=== PATIENT | male | born 1995 | race American Indian/Alaskan Native ===

== ENCOUNTER 2017-12-12 08:53 | Inpatient (IN) | payer OTHER ==
[2017-12-12 09:10] VITALS: BMI 21.6
[2017-12-12] MEDS ORDERED: levETIRAcetam 1,000 MG in Sodium Chloride 0.9% 100 ML IV ONE (09:25)
--- NOTE | 2017-12-12 09:29 | ED PDOC ---
Arrival/HPI - General Chief Complaint: Seizure Time Seen by Provider: 12/12/17 09:02 Historian: Patient - History of Present Illness Narrative History of Present Illness (Text): 12/12/17 09:26 22yo male with PMHx of seizure bib EMS for recurrent seizure. Patient's mother by the bedside states she noticed patent had a tonic-clonic seizure this morning. States patient's last seizure was 2years ago. He has been on unknown dose of Keppra twice daily and states he is complaint with his medication.s States he saw his Neurologist yesterday. Mother states she did not witnessed urinary/fecal incontinence. Patient reports mild headache. He denies tongue biting, focal weakness or any other somatic complaint. Past Medical History - Provider Review Nursing Documentation Reviewed: Yes - Neurological Hx Seizures: Yes - Psychiatric Hx Substance Use: No - Anesthesia Hx Anesthesia: No Family/Social History - Physician Review Nursing Documentation Reviewed: Yes Family/Social History: Unknown Family HX Smoking Status: Never Smoked Hx Alcohol Use: No Hx Substance Use: No Allergies/Home Meds Allergies/Adverse Reactions: Allergies No Known Allergies Allergy (Verified 12/12/17 16:32) Home Medications: Home Meds Medication Instructions Recorded Confirmed Unobtainable 12/12/17 12/12/17 Review of Systems - Physician Review All systems were reviewed & negative as marked: Yes - Review of Systems Constitutional: Normal Eyes: Normal ENT: Normal Respiratory: Normal Cardiovascular: Normal Gastrointestinal: Normal Genitourinary Male: Normal Musculoskeletal: Normal Skin: Normal Neurological: Headache, Seizure. absent: Dizziness, Focal Weakness, Gait Changes, Speech Changes, Facial Droop Endocrine: Normal Hemo/Lymphatic: Normal Psychiatric: Normal Physical Exam Vital Signs Reviewed: Yes Vital Signs Temp Pulse Resp BP Pulse Ox 12/12/17 16:14 70 18 125/85 100 12/12/17 16:01 70 18 125/85 100 12/12/17 12:57 65 18 118/75 100 12/12/17 11:47 72 18 121/79 100 12/12/17 09:05 98.2 F 102 H 18 119/82 97 Temperature: Afebrile Blood Pressure: Normal Pulse: Regular Respiratory Rate: Normal Appearance: Positive for: Well-Appearing, Non-Toxic, Comfortable Pain Distress: None Mental Status: Positive for: Alert and Oriented X 3 - Systems Exam Head: Present: Atraumatic, Normocephalic Pupils: Present: PERRL Extroacular Muscles: Present: EOMI Conjunctiva: Present: Normal Mouth: Present: Moist Mucous Membranes Neck: Present: Normal Range of Motion Respiratory/Chest: Present: Clear to Auscultation, Good Air Exchange. No: Respiratory Distress, Accessory Muscle Use Cardiovascular: Present: Regular Rate and Rhythm, Normal S1, S2. No: Murmurs Abdomen: No: Tenderness, Distention, Peritoneal Signs Back: Present: Normal Inspection Upper Extremity: Present: Normal Inspection. No: Cyanosis, Edema Lower Extremity: Present: Normal Inspection. No: Edema Neurological: Present: GCS=15, CN II-XII Intact, Speech Normal, Motor Func Grossly Intact, Normal Sensory Function, Normal Cerebellar Funct, Norm Deep Tendon Reflexes, Memory Normal, Normal 2Pt Descrimination, Other (No focal neurological deficit) Skin: Present: Warm, Dry, Normal Color. No: Rashes Psychiatric: Present: Alert, Oriented x 3, Normal Insight, Normal Concentration Medical Decision Making ED Course and Treatment: 12/12/17 10:29 22yo male with h/o seizure in ED for recurrent seizure. Lab ordered Keppra 1000mg and Tylenol ordered ordered Head CT ordered EKG NSR @94bpm will reassess pt 12/12/17 18:17 Lab was reviewed and elevated CK indicating Rhabdo was noted. UDS +Marijuana. PT was admitted for Rhabdomylosis and recurrent seizure. He was hydrated in ED. Case was DW Dr. Brown and he accepted pt for admission - Lab Interpretations Lab Results: 12/12/17 09:45 12/12/17 09:45 Lab Results 12/12/17 09:45: Alcohol, Quantitative < 10 12/12/17 09:45: Sodium 144, Potassium 4.3, Chloride 107, Carbon Dioxide 26, Anion Gap 15, BUN 7, Creatinine 0.8, Est GFR ( Amer) > 60, Est GFR (Non- Af Amer) > 60, Random Glucose 96, Calcium 9.2, Magnesium 2.2, Total Bilirubin 0.3, AST 208 H, ALT 163 H, Alkaline Phosphatase 74, Total Creatine Kinase 38962 H, CK-MB (CK-2) 5.4 H, CK-MB (CK-2) % 0.0 L, Total Protein 7.1, Albumin 4.4, Globulin 2.7, Albumin/Globulin Ratio 1.6 12/12/17 09:45: WBC 4.7, RBC 5.08, Hgb 12.5 L, Hct 37.5 L, MCV 73.8 L, MCH 24.6 L, MCHC 33.3, RDW 14.3, Plt Count 261, MPV 9.7, Gran % 68.0, Lymph % (Auto) 21.8 L, Holmes % (Auto) 8.5 H, Eos % (Auto) 1.5, Baso % (Auto) 0.2, Gran # 3.22, Lymph # (Auto) 1.0 L, Holmes # (Auto) 0.4, Eos # (Auto) 0.1, Baso # (Auto) 0.01 - RAD Interpretation Radiology Orders: 12/12/17 09:22 HEAD W/O CONTRAST [CT] Stat - Medication Orders Current Medication Orders: Sodium Chloride (Sodium Chloride 0.9%) 1,000 mls @ 150 mls/hr IV .Q6H40M SHAMIKA Last Admin: 12/12/17 12:40 Dose: 150 mls/hr eMAR Start Stop Document 12/12/17 12:40 HI (Rec: 12/12/17 13:40 HI [id number]) Intravenous Solution Start Date 12/12/17 Start Time 12:40 Multivitamins/Vitamin C 10 ml/Thiamine HCl 100 mg/ Folic Acid 1 mg/ Sodium Chloride 1,011.2 mls @ 100 mls/hr IV .Q10H7M ONE Stop: 12/13/17 03:07 Levetiracetam (Keppra) 750 mg PO HS SHAMIKA Levetiracetam (Keppra) 500 mg PO QAM SHAMIKA Lorazepam (Ativan) 1 mg IVP Q2H PRN; Protocol PRN Reason: seizure Discontinued Medications Acetaminophen (Tylenol 325mg Tab) 650 mg PO STAT STA Stop: 12/12/17 09:32 Last Admin: 12/12/17 09:51 Dose: 650 mg MAR Pain/Vitals Document 12/12/17 09:51 HI (Rec: 12/12/17 09:51 HI [id number]) Pain Reassessment Is This A Pain ReAssessment? No Sleep Is patient sleeping during reassessment? No Presence of Pain Presence of Pain Yes Pain Scale Used Pain Scale Used Numeric Location Pain Location Body Planning Official Description Throbbing Re-Assess: MAR Pain/Vitals Document 12/12/17 10:51 HI (Rec: 12/12/17 12:26 HI [id number]) Pain Reassessment Is This A Pain ReAssessment? Yes Sleep Is patient sleeping during reassessment? Yes Levetiracetam 1,000 mg/ Sodium (Chloride) 110 mls @ 440 mls/hr IV ONCE ONE Stop: 12/12/17 09:39 Last Admin: 12/12/17 09:51 Dose: 440 mls/hr eMAR Start Stop Document 12/12/17 09:51 HI (Rec: 12/12/17 09:51 HI [id number]) Intravenous Solution Start Date 12/12/17 Start Time 09:51 Sodium Chloride (Sodium Chloride 0.9%) 1,000 mls @ 999 mls/hr IV .Q1H1M STA Stop: 12/12/17 11:36 Last Admin: 12/12/17 10:48 Dose: 999 mls/hr eMAR Start Stop Document 12/12/17 10:48 HI (Rec: 12/12/17 10:48 HI [id number]) Intravenous Solution Start Date 12/12/17 Start Time 10:48 Disposition/Present on Arrival - Present on Arrival Any Indicators Present on Arrival: No History of DVT/PE: No History of Uncontrolled Diabetes: No Urinary Catheter: No History of Decub. Ulcer: No History Surgical Site Infection Following: None - Disposition Have Diagnosis and Disposition been Completed?: Yes Diagnosis: Seizure, Rhabdomyolysis Disposition: HOSPITALIZED Disposition Time: 10:45 Patient Plan: Admission Patient Problems: Current Active Problems Problem Status Onset Rhabdomyolysis Acute Seizure Acute Condition: FAIR
[2017-12-12 10:08] LABS: BASO # 0.01 K/mm3 (0.0-2.0); BASO % 0.2 % (0.0-3.0); EOS # 0.1 (0.0-0.7); EOS % 1.5 % (1.5-5.0); GRAN # 3.22 (1.4-6.5); HEMOGLOBIN 12.5 g/dL (14.0-18.0); LYMPH % 21.8 % (22.0-35.0); MEAN CELL VOLUME 73.8 fl (80.0-105.0); MEAN CORPUSCULAR HEMOGLOBIN 24.6 pg (25.0-35.0); MEAN CORPUSCULAR HGB CONC 33.3 g/dl (31.0-37.0); MEAN PLATELET VOLUME 9.7 fl (7.0-11.0); MONO # 0.4 (0.1-0.6); MONO % 8.5 % (1.0-6.0); RBC 5.08 10^6/uL (3.5-6.1); RED CELL DISTRIBUTION WIDTH 14.3 % (11.5-14.5); WHITE BLOOD COUNT 4.7 10^3/ul (4.5-11.0)
[2017-12-12 10:11] LABS: ALB/GLOB RATIO 1.6 (1.1-1.8); ALBUMIN 4.4 g/dL (3.0-4.8); ALT/SGPT 163 U/L (7-56); AST/SGOT 208 U/L (17-59); BLOOD UREA NITROGEN 7 mg/dL (7-21); CALCIUM 9.2 mg/dL (8.4-10.5); GFR AFRICAN-AMERICAN > 60; GFR NON-AFRICAN AMERICAN > 60
[2017-12-12] MEDS ORDERED: Sodium Chloride 0.9% 1,000 ML IV STA (10:36)
--- NOTE | 2017-12-12 10:45 | CT ---
PROCEDURE: CT HEAD WITHOUT CONTRAST. HISTORY: Seizure COMPARISON: None available. TECHNIQUE: Axial computed tomography images were obtained through the head/brain without intravenous contrast. Radiation dose: Total exam DLP = 969.95 mGy-cm. This CT exam was performed using one or more of the following dose reduction techniques: Automated exposure control, adjustment of the mA and/or kV according to patient size, and/or use of iterative reconstruction technique. FINDINGS: HEMORRHAGE: No acute parenchymal, subarachnoid or extra-axial hemorrhage. BRAIN: No evidence of large acute infarct. No obvious parenchymal nor extra-axial masses or collections seen on this noncontrast study. VENTRICLES: No obstructive hydrocephalus. CALVARIUM: There are no acute calvarial fracture seen. PARANASAL SINUSES: Unremarkable as visualized. No significant inflammatory changes. MASTOID AIR CELLS: Unremarkable as visualized. No inflammatory changes. OTHER FINDINGS: None. IMPRESSION: No acute intracranial hemorrhage. . Follow-up MRI could be performed for further evaluation of seizure disorder if not already obtained.
--- NOTE | 2017-12-12 11:30 | CP.PCM.HP ---
<RonitDave - Last Filed: 12/12/17 12:33> History of Present Illness - History of Present Illness History of Present Illness: PGY1 Medicine H+P for Dr. Brown Patient is a 22 year old male with a past medical history of known seizure disorder presenting to the hospital after a witnessed seizure this morning. The patient's mother was in the bathroom when she heard a banging in her son's room around 8:15am today. Upon entering, she saw the patient convulsing on his bed. Per the mother, the patient was experiencing whole body convulsions and foaming at the mouth. The convulsions lasted for approximately 4 to 5 minutes. Upon waking, the patient was confused with no recollection of the seizure. He his confusion has since resolved. He states he has been compliant with his medication and has not missed any doses of his medication, Keppra BID of unknown dose. The patient was healthy yesterday without any complaint. He was last seen awake and normal by his mother around 1 am prior to going to sleep. He has no residual effects after the seizure with no complaints currently except for fatigue and mild headache. Denies fevers, chills, nausea, vomiting, diarrhea, constipation, chest pain, shortness of breath, palpitations, abdominal pain, decreased appetite, vision changes, sleep changes, numbness or tingling. PMH: known seizure disorder PSH: denies Meds: Keppra BID (unknown dose and unknown pharmacy) Family: unremarkable Social: smoke marijuana twice a week, denies tobacco, alcohol or other illicit drug use. 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 Currently unemployed. Lives at home with mom. Allergies: NKDA Neurologist: Dr. Harris (last seen yesterday) Seizure hx: - First seizure - January 14, 2016 (unknown reason, no trauma) - Last seizure - September 19, 2016 - This is approx his 5th seizure. - Every seizure has occurred while patient was sleeping. Present on Admission - Present on Admission Any Indicators Present on Admission: No History of DVT/PE: No History of Uncontrolled Diabetes: No Urinary Catheter: No Decubitus Ulcer Present: No Review of Systems - Review of Systems All systems: reviewed and no additional remarkable complaints except - Constitutional Constitutional: Fatigue, Headache (mild). absent: Chills, Fever, Increased Appetite, Weight Gain, Weight Loss - EENT Eyes: As Per HPI, Photophobia. absent: Change in Vision, Pain Nose/Mouth/Throat: As Per HPI. absent: Nasal Congestion, Nasal Discharge, Dry Mouth, Sore Throat - Cardiovascular Cardiovascular: As Per HPI. absent: Chest Pain, Chest Pain at Rest, Diaphoresis , Leg Edema, Lightheadedness, Syncope - Respiratory Respiratory: As Per HPI. absent: Cough, Wheezing - Gastrointestinal Gastrointestinal: As Per HPI. absent: Abdominal Pain, Constipation, Cramping, Diarrhea, Nausea - Genitourinary Genitourinary: As Per HPI. absent: Dysuria, Flank Pain - Musculoskeletal Musculoskeletal: As Per HPI. absent: Muscle Cramps, Muscle Weakness - Neurological Neurological: As Per HPI, Confusion (resolved), Convulsions (whole body convulsion lasting 4-5 minutes), Headaches (intermittent headaches). absent: Dizziness, Numbness, Tingling, Vertigo, Weakness - Psychiatric Psychiatric: absent: Abnormal Sleep Pattern, Anxiety, Auditory Hallucinations, Change in Appetite, Confusion, Depression, Hopelessness, Mood Swings - Endocrine Endocrine: As Per HPI. absent: Change in Body Appearance, Flushing, Palpitations - Hematologic/Lymphatic Hematologic: As Per HPI Past Patient History - Past Medical History & Family History Past Medical History?: Yes - Past Social History Smoking Status: Never Smoked Chewing Tobacco Use: No Cigar Use: No Alcohol: Occasional (last drink 4-5 months ago) Drugs: Cannabis (twice a week) - NEUROLOGICAL Hx Seizures: Yes - PSYCHIATRIC Hx Substance Use: No - SURGICAL HISTORY Hx Surgeries: No - ANESTHESIA Hx Anesthesia: No Meds Allergies/Adverse Reactions: Allergies Allergy/AdvReac Type Severity Reaction Status Date / Time No Known Allergies Allergy Verified 04/19/15 16:39 Physical Exam - Constitutional Appears: Well - Head Exam Head Exam: ATRAUMATIC, NORMAL INSPECTION, NORMOCEPHALIC - Eye Exam Eye Exam: EOMI, Normal appearance, PERRL Pupil Exam: NORMAL ACCOMODATION, PERRL - ENT Exam ENT Exam: Mucous Membranes Moist, Normal Exam - Neck Exam Neck exam: Positive for: Normal Inspection. Negative for: Lymphadenopathy - Respiratory Exam Respiratory Exam: Clear to Auscultation Bilateral, NORMAL BREATHING PATTERN. absent: Accessory Muscle Use, Rales, Rhonchi, Wheezes, Respiratory Distress - Cardiovascular Exam Cardiovascular Exam: REGULAR RHYTHM, +S1, +S2. absent: JVD - GI/Abdominal Exam GI & Abdominal Exam: Normal Bowel Sounds, Soft. absent: Distended, Firm, Guarding, Rigid, Tenderness - Extremities Exam Extremities exam: Positive for: normal inspection, pedal pulses present. Negative for: calf tenderness, pedal edema, tenderness - Back Exam Back exam: NORMAL INSPECTION - Neurological Exam Neurological exam: Alert, CN II-XII Intact, Oriented x3, Reflexes Normal - Psychiatric Exam Psychiatric exam: Normal Affect, Normal Mood - Skin Skin Exam: Dry, Intact, Normal Color, Warm Results - Vital Signs Recent Vital Signs: Last Vital Signs Temp 98.2 F 12/12/17 09:05 Pulse 102 H 12/12/17 09:05 Resp 18 12/12/17 09:05 BP 119/82 12/12/17 09:05 Pulse Ox 97 12/12/17 09:05 - Labs Result Diagrams: 12/12/17 09:45 12/12/17 09:45 Assessment & Plan - Assessment and Plan (Free Text) Assessment: Patient is a 22 year old male with known seizure disorder presents to the hospital with a breakthrough seizure and rhabdomyolysis. Plan: Breakthrough Seizure Neurology Consulted, Dr. Harris - help appreciated All symptoms resolved currently Head CT - No acute intracranial hemorrhage. . Follow-up MRI could be performed for further evaluation of seizure disorder if not already obtained. CXR - No active disease. UDS - positive for cannabinoids only; Alc <10 f/u Levetiracetam (Keppra) level Given Keppra 1,000mg IV in ED Per Dr. Harris's office, patient was given a script for Keppra 500mg PO BID yesterday. Will start patient on this regiment until seen by Dr. Harris. Ativan 1mg IVP PRN Seizure precautions Rhabdomyolysis Total CK - 13,568 Trend CPK, continue to monitor NS @150mL/hr Transaminitis AST 208/ ALT 163 Non-tender on exam f/u hep panel continue to monitor Prophylactic Care SCDs, patient is ambulatory, no anticoagulation indicated at this time No GI ppx indicated at this time Case discussed with Dr. Kevin Cottrell PGY <Willian Brown - Last Filed: 12/12/17 16:00> Results - Vital Signs Recent Vital Signs: Last Vital Signs Temp 98.2 F 12/12/17 09:05 Pulse 65 12/12/17 12:57 Resp 18 12/12/17 12:57 BP 118/75 12/12/17 12:57 Pulse Ox 100 12/12/17 12:57 - Labs Result Diagrams: 12/12/17 09:45 12/12/17 09:45 Labs: Laboratory Results - last 24 hr 12/12/17 12/12/17 12:10 12:10 Urine Color Yellow Urine Appearance Clear Urine pH 6.0 Ur Specific [place] 1.020 Urine Protein Trace H Urine Glucose (UA) Negative Urine Ketones Negative Urine Blood Trace-intact H Urine Nitrate Negative Urine Bilirubin Negative Urine Urobilinogen 0.2 Ur Leukocyte Esterase Negative Urine RBC 1 - 3 Urine WBC 0 - 2 Ur Epithelial Cells 0 - 2 Urine Bacteria Mod Urine Opiates Screen Negative Urine Methadone Screen Negative Ur Barbiturates Screen Negative Ur Phencyclidine Scrn Negative Ur Amphetamines Screen Negative U Benzodiazepines Scrn Negative U Oth Cocaine Metabols Negative U Cannabinoids Screen Positive H Attending/Attestation - Attestation I have personally seen and examined this patient.: Yes I have fully participated in the care of the patient.: Yes I have reviewed all pertinent clinical information: Yes Notes (Text): 12/12/17 15:57 22 year old male with past medical history of seizure disorder who presented with breakthrough seizure at home witnessed by his mother. He was also found to have rhabdomyolysis with CPK of 13,568. Will start on iv fluids with serial CPK monitoring. Neurology evaluation is requested. He is on keppra. Keppra level is ordered. CT head was negative for acute findings. Continue to monitor LFTs closely. Hepatitis panel is ordered. Willian Brown MD Hospitalist.
[2017-12-12 11:34] LABS: CK-MB 5.4 ng/mL (0.0-3.6)
--- NOTE | 2017-12-12 12:11 | RAD ---
HISTORY: baseline admission COMPARISON: 04/19/2015 FINDINGS: LUNGS: No active pulmonary disease. PLEURA: No significant pleural effusion identified, no pneumothorax apparent. CARDIOVASCULAR: Normal. OSSEOUS STRUCTURES: No significant abnormalities. VISUALIZED UPPER ABDOMEN: Normal. OTHER FINDINGS: None. IMPRESSION: No active disease.
[2017-12-12 12:24] LABS: URINE BILIRUBIN NEGATIVE (NEGATIVE); URINE BLOOD TRACE-INTACT (NEGATIVE); URINE GLUCOSE (UA) NEGATIVE (NEGATIVE); URINE LEUKOCYTE ESTERASE NEGATIVE Leu/uL (NEGATIVE); URINE PROTEIN TRACE mg/dL (<30 mg/dL); URINE UROBILINOGEN 0.2 E.U./dL (<1 E.U./dL)
[2017-12-12 12:29] LABS: URINE APPEARANCE CLEAR (CLEAR); URINE COLOR YELLOW (YELLOW)
[2017-12-12] MEDS: Sodium Chloride 0.9% 1,000 ML IV SCH ×2 (12:40→18:24)
[2017-12-12 12:41] LABS: URINE BACTERIA MOD (NEG); URINE EPITHELIAL CELLS 0 - 2 /hpf (0-5); URINE WBC 0 - 2 /hpf (0-6)
[2017-12-12 12:55] LABS: BARBITURATES, UR NEGATIVE (NEGATIVE); BENZODIAZEPINES, UR NEGATIVE (NEGATIVE); OPIATES, UR NEGATIVE (NEGATIVE); PHENCYCLIDINE, UR NEGATIVE (NEGATIVE)
[2017-12-12] MEDS ORDERED: Multivitamin (MVI) 10 ML, Thiamine 100 MG, Folic Acid 1 MG in Sodium Chloride 0.9% 1,00... IV ONE (17:01)
[2017-12-12] MEDS ORDERED: Pneumococcal 23-Valent Vaccine IM ONE (18:57)
--- NOTE | 2017-12-12 19:27 | CON ---
DATE: NEUROLOGY CONSULTATION CHIEF COMPLAINT: Seizure. HISTORY OF PRESENT ILLNESS: This is a 22-year-old man with past medical history of seizure disorder, had a breakthrough seizure this morning at around 8:15 in the a.m., but the patient was convulsive in the bed and foaming on the mouth, but no bowel or bladder incontinence since this, had a postictal confusion. He is on Keppra and he says he has not missed any dose. He is on Keppra 500 mg p.o. b.i.d. He does have some sleep depravation as well, and sleeps late at night around 1 to 2 a.m. No focal weakness in the extremities. Currently he is doing well, and no further seizure like activity. His first seizure was on 01/14/2016 and last seizure was on 09/19/2016, and his seizures usually occurred when he was sleeping at night. Currently no focal weakness of the extremities. We will give him one dose of banana bag and will adjust his Keppra to 500 in the morning and 750 at night. CAT scan of the head showed no acute intracranial abnormality. PAST MEDICAL HISTORY: Seizure disorder. MEDICATIONS: Reviewed by nurse per reconciliation sheet. FAMILY HISTORY: Noncontributory. SOCIAL HISTORY: Smokes marijuana twice a week. Denies any tobacco, illicit drug use or alcohol. 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 Lives at home with mom. ALLERGIES: NO KNOWN DRUG ALLERGIES. REVIEW OF SYSTEMS: A 14-point review of systems negative except as per the HPI. LABORATORY DATA: U-tox is positive for cannabinoids. Sodium is 144, potassium 4.3, chloride of 107, carbon dioxide 26, BUN of 7, creatinine 0.8, random glucose 96. There is elevated LFTs. CK-MB is elevated at 12, creatine kinase is 13,568. PHYSICAL EXAMINATION GENERAL: The patient is sitting up in bed, no acute distress. VITAL SIGNS: Temperature 98.8, pulse rate 72, blood pressure 112/60, respiratory rate 20. HEENT: Head is atraumatic and normocephalic. PERRLA. Extraocular muscles intact. NECK: Supple. No JVD. No adenopathy noted. LUNGS: Clear to auscultation. No adventitious sounds. HEART: S1 and S2, normal rate and rhythm. No murmurs, rubs, or gallops. ABDOMEN: Soft, nontender, and nondistended. Bowel sounds are present. EXTREMITIES: No clubbing. No cyanosis. Peripheral pulses are 2+ felt bilaterally. NEUROLOGIC: The patient is alert and oriented to person, place, month, and year. Speech is fluent without any errors. Cranial nerves II through XII are intact. Motor exam: Moves all extremities equally. Toes are downgoing bilaterally. Sensory exam: Light touch, pinprick, proprioception, and vibration intact. DTRs are 2+ throughout. Coordination: Eoyoil-ce-igvd intact. Gait is deferred for now. ASSESSMENT AND PLAN: This is 22-year-old man with history of seizure disorder, first started in 01/14/2016 and then his last seizure was on 09/19/2016, had breakthrough seizure especially at night; when he was woken up this morning, he has had generalized tonic-clonic seizure postictal period. His breakthrough seizure could be secondary to sleep deprivation. At this time we recommend; 1. We will change his Keppra to 500 mg p.o. every morning and 750 p.o. every night. 2. Sleep hygiene advised and properly schedule sleep. 3. Advised not to smoke marijuana, which could other seizure like aggravating factors. 4. MRI of the brain with contrast and EEG, and he can be discharged after those tests. Thank you for this consult. Jeevan Harris MD
[2017-12-13] MEDS: Sodium Chloride 0.9% 1,000 ML IV SCH ×5 (00:51→21:08)
[2017-12-13 06:48] LABS: BASO # 0.02 K/mm3 (0.0-2.0); BASO % 0.4 % (0.0-3.0); EOS # 0.1 (0.0-0.7); EOS % 2.5 % (1.5-5.0); GRAN # 2.68 (1.4-6.5); GRAN % 47.4 % (50.0-68.0); HEMOGLOBIN 12.1 g/dL (14.0-18.0); LYMPH # 2.3 (1.2-3.4); LYMPH % 40.5 % (22.0-35.0); MEAN CORPUSCULAR HEMOGLOBIN 23.7 pg (25.0-35.0); MEAN CORPUSCULAR HGB CONC 31.6 g/dl (31.0-37.0); MEAN PLATELET VOLUME 9.8 fl (7.0-11.0); MONO # 0.5 (0.1-0.6); MONO % 9.2 % (1.0-6.0); RBC 5.11 10^6/uL (3.5-6.1); RED CELL DISTRIBUTION WIDTH 14.6 % (11.5-14.5); WHITE BLOOD COUNT 5.7 10^3/ul (4.5-11.0)
[2017-12-13 07:49] LABS: ALB/GLOB RATIO 1.6 (1.1-1.8); ALBUMIN 3.8 g/dL (3.0-4.8); ALT/SGPT 124 U/L (7-56); AST/SGOT 123 U/L (17-59); BLOOD UREA NITROGEN 7 mg/dL (7-21); CALCIUM 8.9 mg/dL (8.4-10.5); GFR AFRICAN-AMERICAN > 60; GFR NON-AFRICAN AMERICAN > 60
[2017-12-13 07:54] LABS: CK-MB 3.4 ng/mL (0.0-3.6)
--- NOTE | 2017-12-13 08:26 | US ---
HISTORY: elevated LFTs COMPARISON: None. TECHNIQUE: Sonographic evaluation of the abdomen. FINDINGS: LIVER: Measures 15.5 cm. Patent portal vein. Portal venous flow: Hepatopetal. Unremarkable echogenicity of the liver parenchyma. No mass. No intrahepatic bile duct dilatation. GALLBLADDER: Unremarkable. No gallstones. COMMON BILE DUCT: Measures 3.6 mm. No stones. No dilatation. PANCREAS: Unremarkable as visualized. No mass. No ductal dilatation. RIGHT KIDNEY: Measures 3.8 x 10.6cm. Normal echogenicity. No calculus, mass, or hydronephrosis. LEFT KIDNEY: Measures 5.6 x 11.5 cm. Normal echogenicity. No calculus, mass, or hydronephrosis. SPLEEN: Normal in size and contour. No mass. AORTA: No aneurysmal dilatation. IVC: Unremarkable. OTHER FINDINGS: None. IMPRESSION: Unremarkable abdominal sonogram.
--- NOTE | 2017-12-13 11:47 | CP.PCM.PN ---
<Dave Cottrell - Last Filed: 12/13/17 12:35> Subjective - Date & Time of Evaluation Date of Evaluation: 12/13/17 Time of Evaluation: 07:43 - Subjective Subjective: PGY1 Medicine Note for Dr. Brown Patient seen and examined at bedside. No acute events overnight. Patient was resting comfortably in bed. He was seizure free throughout the rest of day/ night. He feels back to normal and just wishes he could go home. He has no complaints at this time. Denies fevers, chills, nausea, vomiting, diarrhea, constipation, chest pain, shortness of breath, palpitations, abdominal pain, decreased appetite, vision changes, sleep changes, numbness or tingling. Objective - Vital Signs/Intake and Output Vital Signs (last 24 hours): Temp Pulse Resp BP Pulse Ox 98.3 F 73 18 102/60 100 12/13/17 06:00 12/13/17 10:00 12/13/17 06:00 12/13/17 06:00 12/13/17 06:00 Intake and Output: 12/13/17 12/13/17 06:59 18:59 Intake Total 1300 Output Total 1100 Balance 200 - Medications Medications: Current Medications Sodium Chloride (Sodium Chloride 0.9%) 1,000 mls @ 150 mls/hr IV .Q6H40M [facility] Last Admin: 12/13/17 09:49 Dose: 150 mls/hr Levetiracetam (Keppra) 750 mg PO HS [facility] Last Admin: 12/12/17 21:44 Dose: 750 mg Levetiracetam (Keppra) 500 mg PO QAM [facility] Last Admin: 12/13/17 09:48 Dose: 500 mg Lorazepam (Ativan) 1 mg IVP Q2H PRN; Protocol PRN Reason: seizure - Labs Labs: 12/13/17 06:00 12/13/17 06:00 - Constitutional Appears: Non-toxic, No Acute Distress - Head Exam Head Exam: ATRAUMATIC, NORMOCEPHALIC - Eye Exam Eye Exam: EOMI, Normal appearance, PERRL - ENT Exam ENT Exam: Mucous Membranes Moist - Neck Exam Neck Exam: absent: Lymphadenopathy - Respiratory Exam Respiratory Exam: Clear to Ausculation Bilateral, NORMAL BREATHING PATTERN. absent: Accessory Muscle Use, Rales, Rhonchi, Wheezes, Respiratory Distress - Cardiovascular Exam Cardiovascular Exam: REGULAR RHYTHM, +S1, +S2 - GI/Abdominal Exam GI & Abdominal Exam: Soft, Normal Bowel Sounds. absent: Distended, Firm, Guarding, Rigid, Tenderness - Extremities Exam Extremities Exam: Normal Inspection. absent: Calf Tenderness, Pedal Edema, Tenderness - Neurological Exam Neurological Exam: Alert, Awake, CN II-XII Intact, Oriented x3 - Psychiatric Exam Psychiatric exam: Normal Affect, Normal Mood - Skin Skin Exam: Dry, Normal Color, Warm Assessment and Plan - Assessment and Plan (Free Text) Assessment: Patient is a 22 year old male with known seizure disorder presents to the hospital with a breakthrough seizure and rhabdomyolysis. Plan: Breakthrough Seizure Neurology Consulted, Dr. Harris - help appreciated * Per Neuro note * Patient to have EEG and Brain MRI w/ contrast. * Keppra dose changed to 500mg PO in AM and 750mg PO in PM * Patient cleared for discharge from Neuro standpoint after tests are completed. All symptoms resolved currently Head CT - No acute intracranial hemorrhage. Follow-up MRI could be performed for further evaluation of seizure disorder if not already obtained. CXR - No active disease. UDS - positive for cannabinoids only; Alc <10 f/u Levetiracetam (Keppra) level Keppra 500mg PO in AM and 750mg PO in PM Ativan 1mg IVP PRN Seizure precautions Discussion was had with patient. He is not currently driving due to his current Seizure disorder. Rhabdomyolysis Total CK upon admission 13,568 Total CK down trending 8,346 NS @150mL/hr Transaminitis AST 208/ ALT 163 --> downtrending AST 123/ALT 124 Non-tender on exam hep panel - negative continue to monitor Prophylactic Care SCDs, patient is ambulatory, no anticoagulation indicated at this time No GI ppx indicated at this time DISPO: After patient has EEG and Brain MRI completed, he is cleared for discharge from Neuro standpoint. Will monitor CK one more day. Will hopefully discharge patient home tomorrow. Case discussed with Dr. Kevin Cottrell PGY 1 <Willian Brown - Last Filed: 12/13/17 16:33> Objective - Vital Signs/Intake and Output Vital Signs (last 24 hours): Temp Pulse Resp BP Pulse Ox 97.3 F L 64 18 131/69 100 12/13/17 12:00 12/13/17 14:00 12/13/17 12:00 12/13/17 12:00 12/13/17 06:00 Intake and Output: 12/13/17 12/13/17 06:59 18:59 Intake Total 1300 540 Output Total 1100 650 Balance 200 -110 - Medications Medications: Current Medications Sodium Chloride (Sodium Chloride 0.9%) 1,000 mls @ 150 mls/hr IV .Q6H40M [facility] Last Admin: 12/13/17 14:22 Dose: Not Given Levetiracetam (Keppra) 750 mg PO HS [facility] Last Admin: 12/12/17 21:44 Dose: 750 mg Levetiracetam (Keppra) 500 mg PO QAM [facility] Last Admin: 12/13/17 09:48 Dose: 500 mg Lorazepam (Ativan) 1 mg IVP Q2H PRN; Protocol PRN Reason: seizure - Labs Labs: 12/13/17 06:00 12/13/17 06:00 Attending/Attestation - Attestation I have personally seen and examined this patient.: Yes I have fully participated in the care of the patient.: Yes I have reviewed all pertinent clinical information, including history, physical exam and plan: Yes Notes (Text): 12/13/17 16:31 22 year old male with past medical history of seizure disorder who presented with breakthrough seizure at home witnessed by his mother. He was also found to have rhabdomyolysis with CPK of 13,568 and started on IVF. Today CPK level is improving at 8346. Neurology evaluation was appreciated and his keppra was increased. CT head and MRI brain were negative. EEG report is pending. Continue to monitor LFTs closely which is slowly improving. Abdominal US and hepatitis panel were negative. Willian Brown MD Hospitalist.
[2017-12-13 12:07] LABS: HEPATITIS B SURFACE AG Negative (NEGATIVE)
[2017-12-13 12:12] LABS: HEPATITIS A IGM NEGATIVE (NEGATIVE); HEPATITIS B CORE AB NEGATIVE (NEGATIVE)
[2017-12-13 12:24] LABS: HEPATITIS C ANTIBODY NEGATIVE (NEGATIVE)
[2017-12-13] MEDS ORDERED: Gadodiamide 287 MG/ML VIAL (15ML) IV ONE (12:57)
--- NOTE | 2017-12-13 13:04 | CARD ---
APPROVED REPORT EKG Measurement Heart [id number] <Conclusion> Normal sinus rhythm Minimal voltage criteria for LVH, may be normal variant J point elevations c/w early repolarization
--- NOTE | 2017-12-13 14:30 | MRI ---
PROCEDURE: MRI BRAIN WITH AND WITHOUT CONTRAST HISTORY: seizure COMPARISON: None. TECHNIQUE: Multiplanar, multisequence MR images of the brain were obtained with and without intravenous contrast enhancement. FINDINGS: HEMORRHAGE: None DWI: No evidence of an acute or early subacute infarction. BRAIN PARENCHYMA: No mass,mass effect or edema. No atrophy or chronic microvascular ischemic changes. ENHANCEMENT: No abnormal intracranial enhancement. VENTRICLES: Unremarkable. No hydrocephalus. CRANIUM: Unremarkable. ORBITS: Grossly unremarkable. PARANASAL SINUSES/MASTOIDS: Clear VASCULAR SYSTEM: Skull base flow voids intact. OTHER FINDINGS: None . IMPRESSION: Unremarkable pre and post contrast enhanced MRI of the brain.
[2017-12-14 05:42] VITALS: O2SAT 98
[2017-12-14 06:34] LABS: BASO # 0.04 K/mm3 (0.0-2.0); BASO % 0.8 % (0.0-3.0); EOS # 0.2 (0.0-0.7); EOS % 3.2 % (1.5-5.0); GRAN # 1.96 (1.4-6.5); GRAN % 38.8 % (50.0-68.0); HEMOGLOBIN 12.3 g/dL (14.0-18.0); LYMPH # 2.4 (1.2-3.4); LYMPH % 47.3 % (22.0-35.0); MEAN CELL VOLUME 74.9 fl (80.0-105.0); MEAN PLATELET VOLUME 9.9 fl (7.0-11.0); MONO # 0.5 (0.1-0.6); MONO % 9.9 % (1.0-6.0); RBC 5.13 10^6/uL (3.5-6.1); RED CELL DISTRIBUTION WIDTH 14.6 % (11.5-14.5); WHITE BLOOD COUNT 5.1 10^3/ul (4.5-11.0)
[2017-12-14 07:13] LABS: ALB/GLOB RATIO 1.4 (1.1-1.8); ALBUMIN 3.8 g/dL (3.0-4.8); ALT/SGPT 102 U/L (7-56); AST/SGOT 73 U/L (17-59); BLOOD UREA NITROGEN 13 mg/dL (7-21); CALCIUM 9.5 mg/dL (8.4-10.5); GFR AFRICAN-AMERICAN > 60; GFR NON-AFRICAN AMERICAN > 60
--- NOTE | 2017-12-14 08:09 | PN ---
DATE: 12/13/2017 NEUROLOGY FOLLOWUP CHIEF COMPLAINT: Followup for seizures. SUBJECTIVE: The patient was seen and examined at bedside. No further seizures. He is on Keppra 500 mg p.o. every morning and 750 at night. His MRI of the brain was unremarkable. His EEG was normal. Case discussed with the mother at bedside. PAST MEDICAL HISTORY: Seizure disorder. MEDICATIONS: Reviewed by nurse per reconciliation sheet. FAMILY HISTORY: Noncontributory. SOCIAL HISTORY: He smokes marijuana twice a week. Denies any tobacco or illicit drug use. REVIEW OF SYSTEMS: Fourteen-point review of systems is negative except in the HPI. ALLERGIES: NO KNOWN DRUG ALLERGIES. LABORATORY DATA: Sodium is 145, potassium 3.9, chloride 108, carbon dioxide 26. BUN 7, creatinine 0.8, random glucose of 80. His LFTs are trending downwards. PHYSICAL EXAMINATION: VITAL SIGNS: Temperature 98, pulse rate 60, blood pressure 132/61, respiratory rate 18. GENERAL: Patient is sitting up in bed, in no acute distress. HEENT: Head is atraumatic and normocephalic. PERRLA. Extraocular muscles intact. NECK: Supple. No JVD. No adenopathy noted. LUNGS: Clear to auscultation. No adventitious sounds. HEART: S1, S2. Normal rate and rhythm. No murmurs, rubs, or gallops. ABDOMEN: Soft, nontender, and nondistended. Bowel sounds present. EXTREMITIES: No clubbing. No cyanosis. Peripheral pulses 2+ bilaterally. NEUROLOGIC: The patient is alert and oriented to person, place, month, and year. Speech is fluent without any errors. Cranial nerves II through XII are intact. Motor: Moves all extremities equally. Toes are downgoing bilaterally. Sensory: Light touch, pinprick, proprioception, and vibration are intact. DTRs are 2+ throughout. Coordination: [id number] intact. Gait is deferred for now. ASSESSMENT AND PLAN: This is a 22-year-old man with history of seizures, first started on 01/14/2016, with his last seizure was on 09/19/2016, had a breakthrough seizure especially at night, where he was woken up in the morning, had generalized tonic-clonic in the postictal period. He has a breakthrough seizure, could be secondary to sleep deprivation and poor sleep-wake cycle. His EEG was normal as well as MRI of the brain was unremarkable. At this time, continue with; 1. Keppra 500 mg p.o. every morning and 750 p.o. every evening.. 2. Sleep hygiene advised and proper sleep schedule.. 3. Avoid smoking direct marijuana. 4. Follow up with GI LFTs and continue current present medical management. Jeevan Harris MD
--- NOTE | 2017-12-14 08:16 | EEG ---
DATE: 12/13/2017 This is a 22-year-old male with seizure. CONDITION OF THE RECORDING: Awake, drowsy. MEDICATION: Keppra. DESCRIPTION: Background activity of this tracing was composed of 8 to 9 cycles per second alpha rhythm, small amount of beta activity, 10 to 20 cycles per second was noted in the tracing. Theta activity 5 to 7 cycles per second was noted in the tracing. Drowsiness was composed of mixed beta and theta activity. Photic stimulation does not change the record. No paroxysmal activity was seen in the record. IMPRESSION: Normal, awake, drowsy electroencephalogram. Mauro Harris MD
[2017-12-14] MEDS: Sodium Chloride 0.9% 1,000 ML IV SCH (09:38)
[2017-12-14 12:12] VITALS: BP 126/81; PULSE 77; RESP 18; TEMP 98.1
--- NOTE | 2017-12-14 15:19 | CP.PCM.DIS ---
<Dave Cottrell - Last Filed: 12/14/17 14:21> Provider - Provider Date of Admission: 12/12/17 10:49 Attending physician: Willian Brown MD Consults: Neurology - Dr. Harris Time Spent in preparation of Discharge (in minutes): 40 Hospital Course - Lab Results Lab Results: Most Recent Lab Values WBC 5.1 10^3/ul (4.5-11.0) 12/14/17 05:30 RBC 5.13 10^6/uL (3.5-6.1) 12/14/17 05:30 Hgb 12.3 g/dL (14.0-18.0) L 12/14/17 05:30 Hct 38.4 % (42.0-52.0) L 12/14/17 05:30 MCV 74.9 fl (80.0-105.0) L 12/14/17 05:30 MCH 24.0 pg (25.0-35.0) L 12/14/17 05:30 MCHC 32.0 g/dl (31.0-37.0) 12/14/17 05:30 RDW 14.6 % (11.5-14.5) H 12/14/17 05:30 Plt Count 241 10^3/uL (120.0-450.0) 12/14/17 05:30 MPV 9.9 fl (7.0-11.0) 12/14/17 05:30 Gran % 38.8 % (50.0-68.0) L 12/14/17 05:30 Lymph % (Auto) 47.3 % (22.0-35.0) H 12/14/17 05:30 [place] % (Auto) 9.9 % (1.0-6.0) H 12/14/17 05:30 Eos % (Auto) 3.2 % (1.5-5.0) 12/14/17 05:30 Baso % (Auto) 0.8 % (0.0-3.0) 12/14/17 05:30 Gran # 1.96 (1.4-6.5) 12/14/17 05:30 Lymph # (Auto) 2.4 (1.2-3.4) 12/14/17 05:30 [place] # (Auto) 0.5 (0.1-0.6) 12/14/17 05:30 Eos # (Auto) 0.2 (0.0-0.7) 12/14/17 05:30 Baso # (Auto) 0.04 K/mm3 (0.0-2.0) 12/14/17 05:30 Sodium 147 mmol/L (132-148) 12/14/17 05:30 Potassium 3.9 mmol/L (3.6-5.0) 12/14/17 05:30 Chloride 107 mmol/L (98-107) 12/14/17 05:30 Carbon Dioxide 27 mmol/L (21-33) 12/14/17 05:30 Anion Gap 16 (10-20) 12/14/17 05:30 BUN 13 mg/dL (7-21) 12/14/17 05:30 Creatinine 0.8 mg/dl (0.8-1.5) 12/14/17 05:30 Est GFR ( Amer) > 60 12/14/17 05:30 Est GFR (Non-Af Amer) > 60 12/14/17 05:30 Random Glucose 91 mg/dL (70-110) 12/14/17 05:30 Calcium 9.5 mg/dL (8.4-10.5) 12/14/17 05:30 Magnesium 2.2 mg/dL (1.7-2.2) 12/12/17 09:45 Total Bilirubin 0.2 mg/dL (0.2-1.3) 12/14/17 05:30 AST 73 U/L (17-59) H D 12/14/17 05:30 ALT 102 U/L (7-56) H 12/14/17 05:30 Alkaline Phosphatase 68 U/L (38-126) 12/14/17 05:30 Total Creatine Kinase 3116 U/L (35-230) H 12/14/17 05:30 CK-MB (CK-2) 3.0 ng/mL (0.0-3.6) 12/14/17 05:30 CK-MB (CK-2) % 0.0 % (2.5-3.0) L 12/12/17 09:45 Total Protein 6.4 g/dL (5.8-8.3) 12/14/17 05:30 Albumin 3.8 g/dL (3.0-4.8) 12/14/17 05:30 Globulin 2.6 gm/dL 12/14/17 05:30 Albumin/Globulin Ratio 1.4 (1.1-1.8) 12/14/17 05:30 Urine Color Yellow (YELLOW) 12/12/17 12:10 Urine Appearance Clear (CLEAR) 12/12/17 12:10 Urine pH 6.0 (4.7-8.0) 12/12/17 12:10 Ur Specific [place] 1.020 (1.005-1.035) 12/12/17 12:10 Urine Protein Trace mg/dL (<30 mg/dL) H 12/12/17 12:10 Urine Glucose (UA) Negative mg/dL (NEGATIVE) 12/12/17 12:10 Urine Ketones Negative mg/dL (NEGATIVE) 12/12/17 12:10 Urine Blood Trace-intact (NEGATIVE) H 12/12/17 12:10 Urine Nitrate Negative (NEGATIVE) 12/12/17 12:10 Urine Bilirubin Negative (NEGATIVE) 12/12/17 12:10 Urine Urobilinogen 0.2 E.U./dL (<1 E.U./dL) 12/12/17 12:10 Ur Leukocyte Esterase Negative Jack/uL (NEGATIVE) 12/12/17 12:10 Urine RBC 1 - 3 /hpf (0-2) 12/12/17 12:10 Urine WBC 0 - 2 /hpf (0-6) 12/12/17 12:10 Ur Epithelial Cells 0 - 2 /hpf (0-5) 12/12/17 12:10 Urine Bacteria Mod (NEG) 12/12/17 12:10 Urine Opiates Screen Negative (NEGATIVE) 12/12/17 12:10 Urine Methadone Screen Negative (NEGATIVE) 12/12/17 12:10 Ur Barbiturates Screen Negative (NEGATIVE) 12/12/17 12:10 Ur Phencyclidine Scrn Negative (NEGATIVE) 12/12/17 12:10 Ur Amphetamines Screen Negative (NEGATIVE) 12/12/17 12:10 U Benzodiazepines Scrn Negative (NEGATIVE) 12/12/17 12:10 U Oth Cocaine Metabols Negative (NEGATIVE) 12/12/17 12:10 U Cannabinoids Screen Positive (NEGATIVE) H 12/12/17 12:10 Alcohol, Quantitative < 10 mg/dL (0-10) 12/12/17 09:45 Hepatitis A IgM Ab Negative (NEGATIVE) 12/12/17 09:45 Hep Bs Antigen Negative (NEGATIVE) 12/12/17 09:45 Hep B Core IgM Ab Negative (NEGATIVE) 12/12/17 09:45 Hepatitis C Antibody Negative (NEGATIVE) 12/12/17 09:45 - Hospital Course Hospital Course: As per admission documentation Patient is a 22 year old male with a past medical history of known seizure disorder presenting to the hospital after a witnessed seizure this morning. The patient's mother was in the bathroom when she heard a banging in her son's room around 8:15am today. Upon entering, she saw the patient convulsing on his bed. Per the mother, the patient was experiencing whole body convulsions and foaming at the mouth. The convulsions lasted for approximately 4 to 5 minutes. Upon waking, the patient was confused with no recollection of the seizure. He his confusion has since resolved. He states he has been compliant with his medication and has not missed any doses of his medication, Keppra BID of unknown dose. The patient was healthy yesterday without any complaint. He was last seen awake and normal by his mother around 1 am prior to going to sleep. He has no residual effects after the seizure with no complaints currently except for fatigue and mild headache. Denies fevers, chills, nausea, vomiting, diarrhea, constipation, chest pain, shortness of breath, palpitations, abdominal pain, decreased appetite, vision changes, sleep changes, numbness or tingling. Hospital Course Patient was admitted to the hospital for Rhabdomyolysis, elevated liver enzymes and breakthrough seizure while being complaint medications. Dr. Key, Neurology was consulted. Head CT w/o (12/12/17) - No acute intracranial hemorrhage. Brain MRI w/ contrast (12/12/17) - Unremarkable pre and post contrast enhanced MRI of the brain Abdominal US (12/12/17) - Unremarkable abdominal sonogram Patient's seizure medication was Keppra 500mg PO BID was increased to Keppra 500mg in AM and 750mg in PM. His rhabdomyolysis was treated with IV fluids. His initial total CK was >13,000, which decreased to ~8,000 then ~3,000 on date of discharge. His liver enzymes upon admission were AST 208 and ALT 163. On date of discharge they had improved to AST 73 and ALT 102. A hepatitis panel was order which completely negative along with an abdominal US. The transaminitis was believed to be a direct result of rhabdomyolysis and no other cause. Patient was discharged home with the following instructions. Discharge Instructions 1. Follow up with Dr Batres, your retread supervisor/primary care doctor, in 1 week after discharge, to recheck the liver function 2. Maintain proper sleep hygiene and proper scheduled sleep 3. Abstain from marijuana, which can trigger seizure 4. Follow up with Dr Harris, your neurologist, 1-2 weeks after discharge 5. Maintain adequate hydration After patient was discharged home, a phone call was made to Dr. Jeevan Harris. He instructed Resident Ronit that due to [place] state law, the patient is unable to drive for 90 days due to his breakthrough seizure. The patient was contacted on 12/14 at approximate 2:45pm by telephone and informed that he is not allowed to operate a motor vehicle for the next 90 days and cleared by his neurologist. Patient states he understands and will not operate a motor vehicle at this time. [place] [employer] Commission paperwork was filled out and given to SW to fax. This is just a brief history of the patient's hospital events. For complete detail, please see EMR. Discharge Exam - Head Exam Head Exam: ATRAUMATIC, NORMOCEPHALIC - Eye Exam Eye Exam: EOMI, Normal appearance, PERRL Pupil Exam: NORMAL ACCOMODATION - ENT Exam ENT Exam: Normal Oropharynx - Neck Exam Neck exam: Full Rom - Respiratory Exam Respiratory Exam: Clear to PA & Lateral, NORMAL BREATHING PATTERN, UNREMARKABLE. absent: Accessory Muscle Use, Rales, Rhonchi, Wheezes, Respiratory Distress - Cardiovascular Exam Cardiovascular Exam: REGULAR RHYTHM, +S1, +S2. absent: JVD - GI/Abdominal Exam GI & Abdominal Exam: Normal Bowel Sounds, Soft. absent: Distended, Firm, Guarding, Rigid, Tenderness - Extremities Exam Extremities exam: normal inspection, pedal pulses present - Neurological Exam Neurological exam: Alert, CN II-XII Intact, Normal Gait, Oriented x3 - Psychiatric Exam Psychiatric exam: Normal Affect, Normal Mood - Skin Skin Exam: Dry, Warm Discharge Plan - Discharge Medications Prescriptions: levETIRAcetam [Keppra] 750 mg PO HS #30 tab - Follow Up Plan Condition: FAIR Disposition: HOME/ ROUTINE Instructions: Seizures, Adult (DC), Rhabdomyolysis (DC), Tips for Getting Better Sleep, Marijuana Use and Addiction (DC) Additional Instructions: 1. Follow up with Dr Batres, your retread supervisor/primary care doctor, in 1 week after discharge, to recheck the liver function 2. Maintain proper sleep hygiene and proper scheduled sleep 3. Abstain from marijuana, which can trigger seizure 4. Follow up with Dr Harris, your neurologist, 1-2 weeks after discharge 5. Maintain adequate hydration Referrals: Kamron Batres [Family Provider] - Jeevan Harris MD [Staff Provider] - <Willian Brown - Last Filed: 12/14/17 16:05> Provider - Provider Date of Admission: 12/12/17 10:49 Attending physician: Willian Brown MD Hospital Course - Lab Results Lab Results: Most Recent Lab Values WBC 5.1 10^3/ul (4.5-11.0) 12/14/17 05:30 RBC 5.13 10^6/uL (3.5-6.1) 12/14/17 05:30 Hgb 12.3 g/dL (14.0-18.0) L 12/14/17 05:30 Hct 38.4 % (42.0-52.0) L 12/14/17 05:30 MCV 74.9 fl (80.0-105.0) L 12/14/17 05:30 MCH 24.0 pg (25.0-35.0) L 12/14/17 05:30 MCHC 32.0 g/dl (31.0-37.0) 12/14/17 05:30 RDW 14.6 % (11.5-14.5) H 12/14/17 05:30 Plt Count 241 10^3/uL (120.0-450.0) 12/14/17 05:30 MPV 9.9 fl (7.0-11.0) 12/14/17 05:30 Gran % 38.8 % (50.0-68.0) L 12/14/17 05:30 Lymph % (Auto) 47.3 % (22.0-35.0) H 12/14/17 05:30 [place] % (Auto) 9.9 % (1.0-6.0) H 12/14/17 05:30 Eos % (Auto) 3.2 % (1.5-5.0) 12/14/17 05:30 Baso % (Auto) 0.8 % (0.0-3.0) 12/14/17 05:30 Gran # 1.96 (1.4-6.5) 12/14/17 05:30 Lymph # (Auto) 2.4 (1.2-3.4) 12/14/17 05:30 [place] # (Auto) 0.5 (0.1-0.6) 12/14/17 05:30 Eos # (Auto) 0.2 (0.0-0.7) 12/14/17 05:30 Baso # (Auto) 0.04 K/mm3 (0.0-2.0) 12/14/17 05:30 Sodium 147 mmol/L (132-148) 12/14/17 05:30 Potassium 3.9 mmol/L (3.6-5.0) 12/14/17 05:30 Chloride 107 mmol/L (98-107) 12/14/17 05:30 Carbon Dioxide 27 mmol/L (21-33) 12/14/17 05:30 Anion Gap 16 (10-20) 12/14/17 05:30 BUN 13 mg/dL (7-21) 12/14/17 05:30 Creatinine 0.8 mg/dl (0.8-1.5) 12/14/17 05:30 Est GFR ( Amer) > 60 12/14/17 05:30 Est GFR (Non-Af Amer) > 60 12/14/17 05:30 Random Glucose 91 mg/dL (70-110) 12/14/17 05:30 Calcium 9.5 mg/dL (8.4-10.5) 12/14/17 05:30 Magnesium 2.2 mg/dL (1.7-2.2) 12/12/17 09:45 Total Bilirubin 0.2 mg/dL (0.2-1.3) 12/14/17 05:30 AST 73 U/L (17-59) H D 12/14/17 05:30 ALT 102 U/L (7-56) H 12/14/17 05:30 Alkaline Phosphatase 68 U/L (38-126) 12/14/17 05:30 Total Creatine Kinase 3116 U/L (35-230) H 12/14/17 05:30 CK-MB (CK-2) 3.0 ng/mL (0.0-3.6) 12/14/17 05:30 CK-MB (CK-2) % 0.0 % (2.5-3.0) L 12/12/17 09:45 Total Protein 6.4 g/dL (5.8-8.3) 12/14/17 05:30 Albumin 3.8 g/dL (3.0-4.8) 12/14/17 05:30 Globulin 2.6 gm/dL 12/14/17 05:30 Albumin/Globulin Ratio 1.4 (1.1-1.8) 12/14/17 05:30 Urine Color Yellow (YELLOW) 12/12/17 12:10 Urine Appearance Clear (CLEAR) 12/12/17 12:10 Urine pH 6.0 (4.7-8.0) 12/12/17 12:10 Ur Specific [place] 1.020 (1.005-1.035) 12/12/17 12:10 Urine Protein Trace mg/dL (<30 mg/dL) H 12/12/17 12:10 Urine Glucose (UA) Negative mg/dL (NEGATIVE) 12/12/17 12:10 Urine Ketones Negative mg/dL (NEGATIVE) 12/12/17 12:10 Urine Blood Trace-intact (NEGATIVE) H 12/12/17 12:10 Urine Nitrate Negative (NEGATIVE) 12/12/17 12:10 Urine Bilirubin Negative (NEGATIVE) 12/12/17 12:10 Urine Urobilinogen 0.2 E.U./dL (<1 E.U./dL) 12/12/17 12:10 Ur Leukocyte Esterase Negative Jack/uL (NEGATIVE) 12/12/17 12:10 Urine RBC 1 - 3 /hpf (0-2) 12/12/17 12:10 Urine WBC 0 - 2 /hpf (0-6) 12/12/17 12:10 Ur Epithelial Cells 0 - 2 /hpf (0-5) 12/12/17 12:10 Urine Bacteria Mod (NEG) 12/12/17 12:10 Urine Opiates Screen Negative (NEGATIVE) 12/12/17 12:10 Urine Methadone Screen Negative (NEGATIVE) 12/12/17 12:10 Ur Barbiturates Screen Negative (NEGATIVE) 12/12/17 12:10 Ur Phencyclidine Scrn Negative (NEGATIVE) 12/12/17 12:10 Ur Amphetamines Screen Negative (NEGATIVE) 12/12/17 12:10 U Benzodiazepines Scrn Negative (NEGATIVE) 12/12/17 12:10 U Oth Cocaine Metabols Negative (NEGATIVE) 12/12/17 12:10 U Cannabinoids Screen Positive (NEGATIVE) H 12/12/17 12:10 Alcohol, Quantitative < 10 mg/dL (0-10) 12/12/17 09:45 Hepatitis A IgM Ab Negative (NEGATIVE) 12/12/17 09:45 Hep Bs Antigen Negative (NEGATIVE) 12/12/17 09:45 Hep B Core IgM Ab Negative (NEGATIVE) 12/12/17 09:45 Hepatitis C Antibody Negative (NEGATIVE) 12/12/17 09:45 Attending/Attestation - Attestation I have personally seen and examined this patient.: Yes I have fully participated in the care of the patient.: Yes I have reviewed all pertinent clinical information, including history, physical exam and plan: Yes Notes (Text): 12/14/17 16:02 22 year old male with past medical history of seizure disorder who presented with breakthrough seizure at home witnessed by his mother. He was also found to have rhabdomyolysis with CPK of 13,568 and started on IVF which improvement of his CPK levels. He was seen by neurology and his keppra was increased. CT head, MRI brain and EEG were negative. His LFTs were elevated possibly secondary to rhabdomyolysis but also began to improve. Abdominal US and hepatitis panel were negative. Patient is discharged home to follow up with his pmd. Monitor LFTs as outpatient. Encouraged adequate hydration. Follow up with neurology. Counselled on risks of continued substance abuse, including usage of marijuana. Driving restriction was discussed with patient until he is cleared by his neurologist. DMV form was filled and faxed. Willian Brown MD Hospitalist.
== END 2017-12-14 13:04 | disposition home or self-care (01) | DRG 248 ==
LOC: ED 08:53 → ERH 10:49 → 2RNO 16:21
PROVIDERS: ADMIT Internal Medicine; ATTEND Internal Medicine
DX: M62.82 Rhabdomyolysis (principal); G40.409 Other generalized epilepsy and epileptic syndromes, not intractable, without status epilepticus; F12.90 Cannabis use, unspecified, uncomplicated; Z79.899 Other long term (current) drug therapy

== ENCOUNTER 2018-03-27 19:25 | Emergency (ER) | payer SELFPAY ==
[2018-03-27 19:50] VITALS: BP 131/70; PULSE 61; RESP 16; TEMP 98.3; BMI 20.7
--- NOTE | 2018-03-27 20:03 | ED PDOC ---
Arrival/HPI - General Chief Complaint: Med Refill Time Seen by Provider: 03/27/18 19:56 Historian: Patient - History of Present Illness Narrative History of Present Illness (Text): 03/27/18 19:59 22yo male with pmhx of seizure present to ED for his seizure medication refill. States he took the last dose of his Keppra this morning. He usually take it twice a day. States his last seizure was in December. Denies any other complaint. Past Medical History - Provider Review Nursing Documentation Reviewed: Yes - Cardiac Hx Cardiac Disorders: No - Pulmonary Hx Respiratory Disorders: Yes (SMOKES MARIJUANA 2 X WEEKLY.) - Neurological Hx Neurological Disorder: Yes Hx Seizures: Yes (12-12-17) - HEENT Hx HEENT Disorder: No - Renal Hx Renal Disorder: No - Endocrine/Metabolic Hx Endocrine Disorders: No - Hematological/Oncological Hx Blood Disorders: No - Integumentary Hx Dermatological Disorder: No - Musculoskeletal/Rheumatological Hx Musculoskeletal Disorders: No Hx Falls: Yes - Gastrointestinal Hx Gastrointestinal Disorders: No - Genitourinary/Gynecological Hx Genitourinary Disorders: No - Psychiatric Hx Psychophysiologic Disorder: No Hx Substance Use: Yes - Anesthesia Hx Anesthesia: No Family/Social History - Physician Review Nursing Documentation Reviewed: Yes Family/Social History: Unknown Family HX Smoking Status: Current Some Days Smoker Hx Alcohol Use: No Hx Substance Use: Yes Substance used: marijuana Allergies/Home Meds Allergies/Adverse Reactions: Allergies No Known Allergies Allergy (Verified 12/12/17 16:32) Home Medications: Home Meds Medication Instructions Recorded Confirmed levETIRAcetam [Keppra] 500 mg PO BID 03/27/18 03/27/18 Review of Systems - Physician Review All systems were reviewed & negative as marked: Yes - Review of Systems Constitutional: Normal Eyes: Normal ENT: Normal Respiratory: Normal Cardiovascular: Normal Gastrointestinal: Normal Genitourinary Male: Normal Musculoskeletal: Normal Skin: Normal Neurological: Normal, Seizure (History/ medication refill) Endocrine: Normal Hemo/Lymphatic: Normal Psychiatric: Normal Physical Exam Vital Signs Reviewed: Yes Vital Signs Temp Pulse Resp BP Pulse Ox 03/27/18 19:35 98.3 F 61 16 131/70 100 Temperature: Afebrile Blood Pressure: Normal Pulse: Regular Respiratory Rate: Normal Appearance: Positive for: Well-Appearing, Non-Toxic, Comfortable Pain Distress: None Mental Status: Positive for: Alert and Oriented X 3 - Systems Exam Head: Present: Atraumatic, Normocephalic Pupils: Present: PERRL Extroacular Muscles: Present: EOMI Conjunctiva: Present: Normal Mouth: Present: Moist Mucous Membranes Neck: Present: Normal Range of Motion Respiratory/Chest: Present: Clear to Auscultation, Good Air Exchange. No: Respiratory Distress, Accessory Muscle Use Cardiovascular: Present: Regular Rate and Rhythm, Normal S1, S2. No: Murmurs Abdomen: No: Tenderness, Distention, Peritoneal Signs Back: Present: Normal Inspection Upper Extremity: Present: Normal Inspection. No: Cyanosis, Edema Lower Extremity: Present: Normal Inspection. No: Edema Neurological: Present: GCS=15, CN II-XII Intact, Speech Normal Skin: Present: Warm, Dry, Normal Color. No: Rashes Psychiatric: Present: Alert, Oriented x 3, Normal Insight, Normal Concentration Disposition/Present on Arrival - Present on Arrival Any Indicators Present on Arrival: No History of DVT/PE: No History of Uncontrolled Diabetes: No Urinary Catheter: No History of Decub. Ulcer: No History Surgical Site Infection Following: None - Disposition Have Diagnosis and Disposition been Completed?: Yes Diagnosis: Seizure, Medication refill Disposition: HOME/ ROUTINE Disposition Time: 20:05 Patient Plan: Discharge Condition: STABLE Discharge Instructions (ExitCare): Seizures, Adult (DC) Additional Instructions: Follow up with your doctor/Neurologist Return to ED for any new or worsening symptoms Prescriptions: Levetiracetam [Keppra] 500 mg PO BID #60 tablet Referrals: Maria L Roth MD [Medical Doctor] - Follow up with primary
[2018-03-27 20:16] VITALS: O2SAT 98
== END 2018-03-27 20:13 | disposition home or self-care (01) ==
LOC: ED 19:25
DX: Z76.0 Encounter for issue of repeat prescription (principal); R56.9 Unspecified convulsions